=== PATIENT | female | born 1965 | race Caucasian/White ===

== ENCOUNTER 2017-01-07 09:57 | Emergency (ER) | payer BC ==
[2017-01-07 10:45] VITALS: BP 130/86
--- NOTE | 2017-01-07 12:30 | UC ---
FLU HPI - HPI Summary HPI Summary: 51 year old female with 3 - 4 days of headache, fever, chills, and body aches. Seems to be feeling a bit better today. Denies chest pain or difficulty breathing. Denies nausea or vomiting Tylenol with mild relief of symptoms. - History of Current Complaint Chief Complaint: UCRespiratory Stated Complaint: CONGESTION COUGH Time Seen by Provider: 01/07/17 12:08 Hx Obtained From: Patient ?: No Onset/Duration: Sudden Onset, Lasting Days - 3-4, Still Present Severity Currently: Moderate Severity Initially: Severe Pain Scale Used: 0-10 Numeric - 8 Associated Signs & Symptoms: Positive: Fever, Myalgia, Cough, Sore Throat, Headache. Negative: Nasal Congestion, Vomiting, Diarrhea Related Hx: Possible Flu/Infectious Exposure - Risk Factors Influenza Risk Factors: Negative - Allergy/Home Medications Allergies/Adverse Reactions: Allergies Allergy/AdvReac Type Severity Reaction Status Date / Time No Known Allergies Allergy Verified 01/07/17 10:45 Home Medications: Home Medications Lisinopril/HCTZ 20/25(NF) [Zestoretic 20/25(NF)] 1 tab PO DAILY 01/07/17 [ History Confirmed 01/07/17] Metoprolol Tartrate TAB* [Lopressor TAB*] 50 mg PO DAILY 01/07/17 [History Confirmed 01/07/17] PMH/Surg Hx/FS Hx/Imm Hx Previously Healthy: Yes Endocrine History Of: Denies: Diabetes Cardiovascular History Of: Denies: Cardiac Disorders Respiratory History Of: Denies: COPD - Surgical History Surgical History: None - Family History Known Family History: Negative: Hypertension, Diabetes - Social History Occupation: Unemployed Lives: With Family Alcohol Use: None Substance Use Type: None Smoking Status (MU): Never Smoked Tobacco Review of Systems Constitutional: Fever, Chills Skin: Negative Eyes: Negative ENT: Sore Throat Respiratory: Cough Cardiovascular: Negative Gastrointestinal: Negative Genitourinary: Negative Motor: Negative Neurovascular: Negative Musculoskeletal: Myalgia Neurological: Headache Psychological: Negative All Other Systems Reviewed And Are Negative: Yes Physical Exam Triage Information Reviewed: Yes Appearance: No Pain Distress, Well-Nourished, Ill-Appearing Vital Signs: Initial Vital Signs Temp 99.9 F 01/07/17 10:39 Pulse 97 01/07/17 10:39 Resp 14 01/07/17 10:39 BP 130/86 01/07/17 10:39 Pulse Ox 98 01/07/17 10:39 Vital Signs Reviewed: Yes Eyes: Positive: Conjunctiva Clear. Negative: Discharge ENT: Positive: Hearing grossly normal, TMs normal. Negative: Nasal drainage, Tonsillar swelling Neck: Positive: Supple, Nontender Respiratory: Positive: Lungs clear, Normal breath sounds Cardiovascular: Positive: RRR, No Murmur Abdomen Description: Positive: Nontender, Soft Musculoskeletal: Positive: Strength Intact, ROM Intact Neurological: Positive: Alert, Muscle Tone Normal Psychological: Positive: Age Appropriate Behavior - pleasant and cooperative for exam Flu Course/Dx - Course Course Of Treatment: positive rapid influenza - Differential Dx/Diagnosis Differential Diagnosis/HQI/PQRI: Influenza Provider Diagnoses: Influenza Discharge - Discharge Plan Condition: Stable Disposition: HOME Prescriptions: Benzonatate CAP* [Tessalon CAP*] 100 mg PO TID #12 cap Patient Education Materials: Influenza (ED) Referrals: Javier Browning PA [Primary Care Provider] - 1 Week (or sooner if you are worse in anyway)
== END 2017-01-07 12:42 | disposition home or self-care (01) ==
LOC: UCCORT 09:57
DX: J11.1 Influenza due to unidentified influenza virus with other respiratory manifestations (principal)
CPT/HCPCS: 87502; 99202; G0463